=== PATIENT | female | born 1975 | race Caucasian/White ===

== ENCOUNTER 2021-06-24 10:02 | Emergency (ER) | payer MEDICAID ==
[~2021-06-24] VITALS: Ht 160 cm; Wt 127.0 kg
[2021-06-24] MEDS ORDERED: IBUPROFEN 800MG TABLET PO ONE (10:15)
[2021-06-24 12:12] VITALS: BP 135/91
== END 2021-06-24 12:13 | disposition home or self-care (01) ==
LOC: ER 10:02
DX: S83.8X1A Sprain of other specified parts of right knee, initial encounter (principal); M79.661 Pain in right lower leg; W10.8XXA Fall (on) (from) other stairs and steps, initial encounter; Y93.01 Activity, walking, marching and hiking; Y92.89 Other specified places as the place of occurrence of the external cause
CPT/HCPCS: 73562; 73590; 99284